=== PATIENT | male | born 1945 | race Caucasian/White ===

== ENCOUNTER 2020-12-08 16:31 | Outpatient (CLI) | payer MEDICARE, SELFPAY | END 2020-12-08 16:32 | disposition home or self-care (01) | LOC: ANHCOVIDVC 16:31 | PROVIDERS: PCP Nurse Practitioner Adult Health | DX: Z23 Encounter for immunization (principal) | CPT/HCPCS: 0001A; 91300 ==

== ENCOUNTER 2020-12-29 16:32 | Outpatient (CLI) | payer MEDICARE, SELFPAY | END 2020-12-29 16:33 | disposition home or self-care (01) | LOC: ANHCOVIDVC 16:32 | PROVIDERS: PCP Nurse Practitioner Adult Health | DX: Z23 Encounter for immunization (principal) | CPT/HCPCS: 0002A; 91300 ==

== ENCOUNTER 2021-07-09 10:40 | Outpatient (CLI) | payer MEDICARE, SELFPAY ==
--- NOTE | 2021-07-09 | ECG_ITS ---
Measurements Intervals Bryan Rate: 66 P: 25 ID: [id number] QRS: -20 QRSD: 93 T: 7 QT: 375 QTc: 395 Interpretive Statements SINUS RHYTHM BORDERLINE T WAVE ABNORMALITY- INFERIOR LEADS BASELINE ARTIFACT- I, II, AVR, AVL BORDERLINE ECG Electronically Signed On 07-09-2021 14:38:28 CDT by Solo Hammond D.O.
[2021-07-09 11:39] LABS: Albumin Level 4.5 g/dL (3.5-5.1); Estimated Glomerular Filt Rate > 60
== END 2021-07-09 10:41 | disposition home or self-care (01) ==
PROVIDERS: PCP Nurse Practitioner Family; Visit Provider Orthopaedic Surgery
DX: Z01.818 Encounter for other preprocedural examination (principal); M16.11 Unilateral primary osteoarthritis, right hip
CPT/HCPCS: 36415; 82040; 82565; 93005

== ENCOUNTER 2021-07-13 11:55 | Outpatient (CLI) | payer MEDICARE, SELFPAY ==
[2021-07-13 13:57] LABS: Basophils Absolute Auto 0.1 K/mm3 (0.0-0.1); Basophils Percent Auto 1.2 % (0.2-1.2); Eosinophils Absolute Auto 0.2 K/mm3 (0-0.3); Eosinophils Percent Auto 3.8 % (0-4.4); Hematocrit 41.1 % (42.0-52.0); Hemoglobin 14.2 g/dL (14.0-18.0); Immature Granulocyte Absolute 0.01 K/mm3 (0.00-0.031); Immature Granulocyte Percent A 0.2 % (0-0.5); Lymphocytes Percent Auto 32.4 % (18.3-44.2); Mean Corpuscular HGB Conc 34.5 g/dl (32-36); Mean Corpuscular Hemoglobin 32.1 pg (26-34); Mean Corpuscular Volume 92.8 fl (80-100); Mean Platelet Volume 9.1 fl (7.4-10.4); Monocytes Absolute Auto 0.3 K/mm3 (0.1-0.6); Monocytes Percent Auto 5.7 % (2.6-8.5); Neutrophils Absolute Auto 2.8 K/mm3 (1.3-6.7); Neutrophils Percent Auto 56.7 % (45.5-73.1); Platelet Count Result 250 k/mm3 (150-375); Red Blood Count 4.43 M/mm3 (4.6-6.20); Red Cell Distribution Width 13.8 % (11.5-14.5); White Blood Count 4.9 K/mm3 (4.5-10.0)
[2021-07-13 14:33] LABS: Glucose 111 mg/dL (65-110)
[2021-07-13 16:25] LABS: Urine Cotinine NEGATIVE
== END 2021-07-13 11:56 | disposition home or self-care (01) ==
LOC: ANHSURGERY 11:59
PROVIDERS: PCP Nurse Practitioner Family; Visit Provider Orthopaedic Surgery
DX: Z01.818 Encounter for other preprocedural examination (principal); M16.11 Unilateral primary osteoarthritis, right hip
CPT/HCPCS: 36415; 80307; 82947; 83036; 85025; 86850; 86900; 86901; 87081

== ENCOUNTER 2021-07-25 19:16 | Observation (INO) | payer MEDICARE, SELFPAY ==
[2021-07-13 12:11] VITALS: BP 162/90; PULSE 76; RESP 18; TEMP 36.8; O2SAT 98; BMI 36.6
[2021-07-24] VITALS (15 sets, daily range): BP systolic 126–158; BP diastolic 71–95; PULSE 66–90; RESP 12–20; TEMP 35.9–37.1; O2SAT 91–100
--- NOTE | 2021-07-24 07:57 | P.PNAN_ITS ---
Anes - Initial Pre Proc Eval Procedure: Operation Date: 07/24/21 11:00 Proposed Procedures p Right Total Hip Arthroplasty - Rishabh Rowe MD Date/Time: 07/24/21 07:57 Surgeon: Rishabh Rowe MD Pre Op Diagnosis: primary OA right hip Patient Data Age: 76 Gender: M Height: 1.68 m Weight: 103 kg Last Vital Signs Temp 36.8 C 07/13/21 12:11 Pulse 76 07/13/21 12:11 Resp 18 07/13/21 12:11 BP 162/90 H 07/13/21 12:11 Pulse Ox 98 07/13/21 12:11 Allergies Allergy/AdvReac Type Severity Reaction Status Date / Time No Known Allergies Allergy Verified 07/24/21 08:37 Home Medications Medication Instructions Recorded Confirmed Type losartan 100 mg tablet 100 mg PO HS 04/23/21 07/24/21 History acetaminophen [Tylenol Extra 1,000 mg PO Q6H PRN 07/13/21 07/24/21 History Strength] Patient hx anesthesia problems: none Family hx anesthesia problems: none Results Review: All pre-operative results and documents have been reviewed as part of the pre-operative evaluation. [facility] Past Medical History Medical History (Updated 07/24/21 @ 10:10 by Elijah William DO) Broken arm (~1950) History of aortic valve disorder Dr. French said could get Hip taken care of first. 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 Alcohol intake: current Alcohol use details: only on occasions Substance use: never Living arrangements: with family Additional living arrangements comments: Spiritual care concerns: No Anes - Eval Final PreProcedure Day of Procedure 07/24/21 07:57 Patient weight: obese Heart: regular rate and rhythm Lungs: clear to auscultation and normal air movement Airway: Mallampati scale class III Neurological: alert and oriented Last oral intake: >/= 8 hours ASA classification: III Emergent: no Anesthetic plan: proceed Anesthesia type and monitoring: general ETT and standard monitoring Results Review: All pre-operative results and documents have been reviewed as part of the pre-operative evaluation. Informed Consent: The patient's anesthetic plan and its attendant risks and benefits were discussed with the patient/family/POA. Questions were solicited and answers provided to the satisfaction of the patient/family/POA.
[2021-07-24] MEDS: LACTATED RINGERS 1,000 ML 30 ML IV CONT ×3 (09:14→15:02)
[2021-07-24] MEDS: ACETAMINOPHEN 500 MG TABLET 1000 MG PO (09:15)
[2021-07-24] MEDS: TRANEXAMIC ACID 1,000MG/ISO100 1,000 MG/100 ML BAG 200 MG IVPB (10:20)
--- NOTE | 2021-07-24 11:19 | WPDHPUPDATE1 ---
History and Physical Update Update Date/Time: 07/24/21 11:19 History and Physical has been reviewed, including an updated exam of the patient. There are NO changes in the patient's condition. Risks, benefits, and alternatives have been discussed and questions answered. Patient agrees to proceed with procedure.
[2021-07-24] MEDS: ceFAZolin 2 GM/D5W 50 ML 2 GM/50 ML BAG IVPB ×2 (11:45→21:06)
[2021-07-24] MEDS: fentaNYL CITRATE INJ (*CRX) 100 MCG/2 ML VIAL 25 MCG IV PUSH ×8 (14:16→14:52)
--- NOTE | 2021-07-24 14:21 | W.PM.PROC2 ---
Procedure Note - Detailed Date of Procedure 07/24/21 Pre-op Diagnosis Primary OA right hip Post-op Diagnosis same Procedure Performed Right Total Hip Arthroplasty Surgeon Rishabh Rowe MD Coal Chute Worker Berna Orosco PA-C Anesthesia general Description of Procedure The patient was given preoperative antibiotics. A general anesthetic was administered. The patient was carefully placed in the lateral decubitus position on the PEG board. The shoulders and hips were carefully positioned for component and leg length positioning reference. The hip was prepped and draped in the usual sterile fashion. A longitudinal incision was created over the posterior aspect of the greater trochanter. Careful dissection was brought down through the deep fascia with electrocautery. A minimally invasive optimized posterior approach to the hip was performed. The short external rotators and capsule were taken down in an L-shaped capsulotomy. The tissue was tagged for later repair using number 2 high strength suture. The femoral neck was measured and taken in situ. The femoral head was removed. The acetabulum was carefully exposed. The inferior capsule was released. The labrum was resected. The acetabulum was sequentially reamed to the intended cup size. The cup was impacted into position with excellent press-fit. Typical anatomic landmarks, including the bony contact points as well as the inferior transverse acetabular ligament were used to confirm cup positioning with preoperative templating. Attention was turned to the femur, which was carefully exposed. The hip was reamed and then broached sequentially. Excellent press-fit was obtained with the broach. The hip was trialed. Measurements were utilized, including the lesser trochanter as well as the center of the femoral head and the tip of the trochanter, and excellent assessment of the offset and leg lengths were confirmed. The real component was impacted into position. Trialing confirmed appropriate leg length and offset with soft tissue balancing as well apparent feel of the leg, both at the knee and the heel. Soft tissues were assessed using the the iliotibial band. Reduction of the posterior capsule and external rotators were also used as a secondary assessment. The hip was copiously irrigated with pulsatile lavage antibiotic solution periodically throughout the procedure. The real components were then assembled and reduced. The hip was stable throughout typical maneuvers, including extension, external rotation to 70 degrees, the position of sleep as well as flexion to 90 degrees with internal rotation past 45 degrees. The shake test confirmed stability without impingement. Osteophytes were removed as necessary. The short external rotators and capsule were repaired back to the posterior trochanter through drill holes. The deep fascia was repaired with running number 2 Quill suture, followed by 0 Stratafix suture and 2-0 Stratafix suture in the dermis. Steri-Strips were placed on the skin, followed by a sterile silver occlusive dressing. There were no complications. Meticulous hemostasis was maintained with the AquaMantys device. The patient was brought to the recovery room in stable condition. There were no complications. Physician assistant manager/embalmer, Berna Orosco PA-C, required for surgery; including patient positioning, draping, tissue retraction, maintaining instrument position, wound closure, and dressing placement. Implants The Accolade II hip stem, 127 degree size 5 , was utilized with excellent press-fit. 10 degree elevated liner. The 54 mm Trident II acetabular component was impacted with excellent press-fit stability. The -2.5 , 36 mm Biolox ceramic femoral head was utilized. Estimated Blood Loss -300.0 Urine Output -900.0 Drains No Packing No Pathology none sent Complications No immediate complications Condition stable Disposition PACU
[2021-07-24] MEDS: HYDROmorphone HCL INJ (*CRX) 1 MG/ML SYR 0.5 MG IV PUSH ×2 (15:04→15:18)
[2021-07-24 15:39] LABS: Hematocrit 37.2 % (42.0-52.0); Hemoglobin 12.9 g/dL (14.0-18.0)
--- NOTE | 2021-07-24 15:58 | ADMGEN ---
This patient, Krunal Partida, was admitted to Medical Room 259-. Patient/family oriented to hospital policies and general routines including ID bracelet, bed and alarms, visiting hours, pain management, procedures, bathroom and other care routines, personal items, smoking policy, room service/diet, and visiting hours. Information on how to activate the Rapid Response Team has been discussed. Patient/Family are encouraged to report perceived risks to care and to ask questions if they do not understand what they are told or what they should do.
[2021-07-24] MEDS: ASPIRIN 81 MG ENTERIC TABLET PO (19:10)
[2021-07-24] MEDS: DOCUSATE SODIUM 100 MG CAPSULE PO (19:10)
[2021-07-24] MEDS: LOSARTAN POTASSIUM 100 MG TABLET PO (21:06)
[2021-07-24] MEDS: FAMOTIDINE 20 MG TABLET PO (21:07)
[2021-07-24] MEDS: oxyCODONE HCL (*CRX) 5 MG TAB IR PO (21:07)
[2021-07-25] VITALS (10 sets, daily range): BP systolic 117–153; BP diastolic 56–78; PULSE 70–97; RESP 16–20; TEMP 36.1–37.2; O2SAT 95–100
--- NOTE | ~2021-07-25 | XR_ITS ---
EXAMINATION: XR hip RT min 2V DATE: 07/24/2021 14:23 INDICATION: Total right hip arthroplasty. Postop. TECHNIQUE: 2 views of right hip were obtained. COMPARISON: Right hip radiographs 05/14/2021 FINDINGS: There is a total right hip arthroplasty in near-anatomic alignment. No fracture. There is g as in the soft tissues, consistent with recent surgery. IMPRESSION: 1. Total right hip arthroplasty in near-anatomic alignment. Reviewed, dictated and finalized at location A.
[2021-07-25] MEDS: ceFAZolin 2 GM/D5W 50 ML 2 GM/50 ML BAG IVPB ×2 (03:55→11:30)
[2021-07-25] MEDS: oxyCODONE HCL (*CRX) 5 MG TAB IR PO (04:41)
[2021-07-25 05:42] LABS: Basophils Absolute Auto 0.1 K/mm3 (0.0-0.1); Basophils Percent Auto 0.7 % (0.2-1.2); Eosinophils Absolute Auto 0.2 K/mm3 (0-0.3); Eosinophils Percent Auto 2.3 % (0-4.4); Hematocrit 34.8 % (42.0-52.0); Hemoglobin 11.8 g/dL (14.0-18.0); Immature Granulocyte Absolute 0.03 K/mm3 (0.00-0.031); Immature Granulocyte Percent A 0.4 % (0-0.5); Lymphocytes Absolute Auto 1.46 K/mm3 (0.9-3.2); Lymphocytes Percent Auto 19.8 % (18.3-44.2); Mean Corpuscular HGB Conc 33.9 g/dl (32-36); Mean Corpuscular Hemoglobin 32.5 pg (26-34); Mean Corpuscular Volume 95.9 fl (80-100); Mean Platelet Volume 9.1 fl (7.4-10.4); Monocytes Absolute Auto 0.5 K/mm3 (0.1-0.6); Monocytes Percent Auto 7.3 % (2.6-8.5); Neutrophils Absolute Auto 5.1 K/mm3 (1.3-6.7); Neutrophils Percent Auto 69.5 % (45.5-73.1); Platelet Count Result 175 k/mm3 (150-375); Red Blood Count 3.63 M/mm3 (4.6-6.20); Red Cell Distribution Width 13.8 % (11.5-14.5); White Blood Count 7.4 K/mm3 (4.5-10.0)
[2021-07-25 05:53] LABS: Anion Gap 6 mmol/L (8-16); Blood Urea Nitrogen 15 mg/dL (9-20); Calcium 8.3 mg/dL (8.4-10.2); Carbon Dioxide 27 mmol/L (22-30); Chloride 102 mmol/L (98-107); Estimated CRCL calculation 56 ml/min; Estimated Glomerular Filt Rate > 60; Glucose 113 mg/dL (65-110); Potassium 4.1 mmol/L (3.4-5.0); Sodium 135 mmol/L (137-145)
[2021-07-25] MEDS: DOCUSATE SODIUM 100 MG CAPSULE PO ×2 (08:13→16:59)
[2021-07-25] MEDS: oxyCODONE HCL (*CRX) 5 MG TAB IR 10 MG PO ×4 (08:13→23:06)
[2021-07-25] MEDS: FAMOTIDINE 20 MG TABLET PO ×2 (08:13→20:14)
[2021-07-25] MEDS: ASPIRIN 81 MG ENTERIC TABLET PO ×2 (08:13→16:59)
--- NOTE | 2021-07-25 13:51 | WPDANESPN ---
Anes - Prog Note Post-Op Date/Time: 07/25/21 13:51 Cardiovascular status: normal Respiratory status: normal Airway patency: baseline Mental status: baseline Post-Op hydration status: normal Vital Signs: Last Vital Signs Temp 98.4 F 07/25/21 09:07 Pulse 89 07/25/21 09:07 Resp 16 07/25/21 09:07 BP 117/56 L 07/25/21 09:07 Pulse Ox 97 07/25/21 09:07 Pain Score (VAS): 3 I/O: Intake & Output 07/24/21 07/25/21 07/25/21 23:59 07:59 15:59 Intake Total 230 350 500 Output Total 550 Balance 230 -200 500 Laboratory Tests 07/25/21 05:26 07/25/21 05:26 07/24/21 07/25/21 07/25/21 15:34 05:26 05:26 WBC 7.4 RBC 3.63 L Hgb 12.9 L 11.8 L Hct 37.2 L 34.8 L MCV 95.9 MCH 32.5 MCHC 33.9 RDW 13.8 Plt Count 175 MPV 9.1 Immature Gran % (Auto) 0.4 Neut % (Auto) 69.5 Lymph % (Auto) 19.8 [place] % (Auto) 7.3 Eos % (Auto) 2.3 Baso % (Auto) 0.7 Lymph # (Auto) 1.46 [place] # (Auto) 0.5 Eos # (Auto) 0.2 Baso # (Auto) 0.1 Abs Immat Gran (auto) 0.03 Absolute Neuts (auto) 5.1 Absolute Nucleated RBC 0.0 Nucleated RBC % 0.0 Sodium 135 L Potassium 4.1 Chloride 102 Carbon Dioxide 27 Anion Gap 6 L BUN 15 Creatinine 1.10 Estim Creat Clear Calc 56 Estimated GFR > 60 Glucose 113 H Calcium 8.3 L Post-procedural complaints: none Patient Feedback: Patient satisfied with anesthetic care.
--- NOTE | 2021-07-25 16:38 | PM.PNORT ---
Progress Note: A&P Assessment and Plan (1) Status post total hip replacement, right: Code(s): Z96.641 - Presence of right artificial hip joint Status: Acute Assessment and Plan: POD #1 Right Total hip arthroplasty. No complications. Patient was given a Elmore during surgery. It was removed this AM and he has yet to urinate. Bladder scan showed 200 cc. Nurse is encouraging him to drink water. Increased pain. Will start oral Tylenol. Patient states he is unable to take NSAIDs according to his PCP. Having trouble with PT. Spoke with PT this morning. Concern for his safety wile walking. Throat pain from intubation. Will keep patient overnight. Hospital consult for medical management. Patient will discharge home pending pain control and ability to urinate. DVT prophylaxis: 81 mg baby aspirin b.i.d. for 14 days. Short frequent walks. Compression socks. Pain medication: Tylenol and Oxycodone. Subjective Subjective Date/Time Seen: 07/25/21 16:38 POD #1 Right Total hip arthroplasty. No complications. Patient was given a Elmore during surgery. It was removed today and he has yet to urinate. Bladder scan showed 200 cc. Increased pain today and is having trouble with PT. Throat pain from intubation. No other complaints. Review of Systems Review of Systems: All systems reviewed & are unremarkable except as noted in HPI and below Exam Narrative: Pleasant overweight, elderly 76 y/o male. A&O x3. No clinical deformity. Difficulty ambulating with walker. Dressing dry and intact. No drainage, erythema, ecchymosis, warmth. No rash or lesions. Tender to palpation. Slight swelling. No distal edema. Good early ROM. Light touch sensation intact. Dorsalis pedis pulse normal. Leg length appears equal. Calf nontender. Objective Data Vital Signs Vital Signs: Vital Signs - 24 hr 07/24/21 16:45 07/24/21 17:45 07/24/21 21:29 Temperature 96.7 F L 96.6 F L 97.3 F L Pulse Rate 68 71 90 Respiratory Rate 18 18 20 Blood Pressure 154/78 H 126/71 142/76 H Pulse Oximetry 99 100 93 07/24/21 22:40 07/25/21 00:21 07/25/21 00:24 Temperature 96.9 F L 96.9 F L Pulse Rate 90 72 72 Respiratory Rate 20 18 18 Blood Pressure 135/65 135/65 Pulse Oximetry 93 99 99 07/25/21 05:29 07/25/21 09:00 07/25/21 09:07 Temperature 97.9 F 98.4 F Pulse Rate 70 89 Respiratory Rate 20 16 Blood Pressure 124/65 117/56 L Pulse Oximetry 97 97 97 07/25/21 13:29 Temperature 97.4 F L Pulse Rate 80 Respiratory Rate 17 Blood Pressure 128/65 Pulse Oximetry 100 Intake/Output Intake/Output: Intake & Output 07/22/21 07/23/21 07/24/21 07/25/21 23:59 23:59 23:59 23:59 Intake Total 880 850 Output Total 370 550 Balance 510 300 Meds/Results Medications: Active Medications Generic Name Dose Route Start Last Admin Trade Name Freq PRN Reason Stop Dose Admin Acetaminophen 1,000 mg 07/25/21 16:24 Acetaminophen 500 Mg Tablet PO Q6H PRN Mild Pain (1-3) or Fever Aspirin 81 mg 07/24/21 17:00 07/25/21 08:13 Aspirin 81 Mg Enteric Tablet PO 81 mg BID JONAH Administration Cyclobenzaprine HCl 10 mg 07/24/21 15:44 Cyclobenzaprine Hcl 10 Mg Tablet PO Q8H PRN Muscle Spasm Docusate Sodium 100 mg 07/24/21 17:00 07/25/21 08:13 Docusate Sodium 100 Mg Capsule PO 100 mg BID JONAH Administration Famotidine 20 mg 07/24/21 21:00 07/25/21 08:13 Famotidine 20 Mg Tablet PO 20 mg Q12HR JONAH Administration Losartan Potassium 100 mg 07/24/21 21:00 07/24/21 21:06 Losartan Potassium 100 Mg Tablet PO 100 mg HS JONAH Administration Magnesium Hydroxide 30 ml 07/24/21 15:44 Magnesium Hydroxide Susp 30 Ml Udc PO BID PRN Constipation Naloxone HCl 0.1 mg 07/24/21 15:44 Naloxone Hcl 0.4 Mg/Ml Vial IV PUSH Q2M PRN Opiate Reversal Ondansetron HCl 4 mg 07/24/21 15:44 Ondansetron Inj 4 Mg/2 Ml Vial IV PUSH Q4H PRN Philip
[2021-07-25] MEDS: ACETAMINOPHEN 500 MG TABLET 1000 MG PO (16:59)
[2021-07-25] MEDS: LOSARTAN POTASSIUM 100 MG TABLET PO (20:13)
[2021-07-26] VITALS (8 sets, daily range): BP systolic 123–145; BP diastolic 55–72; PULSE 86–100; RESP 17–20; TEMP 36.8–37.2; O2SAT 95–97
--- NOTE | 2021-07-26 00:20 | PC.NURSE ---
PT KEENE REMOVED ON DAY SHIFT 07/25, AND WAS RETAINING. HE WAS STRAIGHT CATHETERIZED PRIOR TO MY SHIFT. I ENCOURAGED PT TO DRINK WATER AND ATTEMPT TO URINATE IN URINAL. PT HAD MULTIPLE UNSUCCESSFUL ATTEMPTS TO URINATE. DECIDED TO SCAN BLADDER BUT BLADDER SCANNER WAS NOT PICKING UP ANY URINE. 0000 PT STATED HE FELT HE HAD URINE IN HIS BLADDER AND WAS UNCOMFORTABLE TO I STRAIGHT CATHETERIZED HIM. PT PRODUCED 500ML URINE. PT STATING HE HAD NO PROBLEMS URINATING BEFORE SURGERY ONLY MINOR DRIBBLING.
[2021-07-26] MEDS: oxyCODONE HCL (*CRX) 5 MG TAB IR 10 MG PO (06:52)
--- NOTE | 2021-07-26 07:01 | PC.NURSE ---
0650 PT ATTEMPTING TO USE URINAL WITH NO SUCCESS. BLADDER SCANNER STILL DOWN. PT SAID HE FELT PAIN AND HE HAD TO URINATE BUT NOTHING WAS COMING OUT. STRAIGHT CATH RESULTED IN 800ML OF URINE
[2021-07-26] MEDS: ASPIRIN 81 MG ENTERIC TABLET PO ×2 (08:26→16:56)
[2021-07-26] MEDS: DOCUSATE SODIUM 100 MG CAPSULE PO ×2 (08:26→16:56)
[2021-07-26] MEDS: FAMOTIDINE 20 MG TABLET PO ×2 (08:26→20:30)
[2021-07-26] MEDS: MAGNESIUM HYDROXIDE SUSP 30 ML UDC PO ×2 (08:27→16:59)
--- NOTE | 2021-07-26 13:15 | PM.IMCN ---
Assessment and Plan Assessment and plan (1) Status post total hip replacement, right: Code(s): Z96.641 - Presence of right artificial hip joint Status: Acute (2) Arthritis of right hip: Code(s): M16.11 - Unilateral primary osteoarthritis, right hip Status: Acute (3) Right hip pain: Code(s): M25.551 - Pain in right hip Status: Acute HPI Data of Consult Consult date: 07/26/21 Requesting Physician: Rishabh Rowe MD Primary Care Provider: Kenna Rojas, CONSULTING MARINE ENGINEER-BC Consult Narrative Narrative: Krunal Partida is a 76 year old male Review of Systems Review of Systems: All systems reviewed & are unremarkable except as noted in HPI and below PMFSH Past Medical History Medical History (Updated 07/24/21 @ 10:10 by Elijah William DO) Broken arm (~1950) History of aortic valve disorder Dr. French said could get Hip taken care of first. Moderate - mean gradient 25.3 mmHg, valve area 1.29 cm2 History of hypertension History of kidney stones Kidney stones in the past but not recent Hyperlipidemia Hypertension Family History Family History Father Malignant neoplasm of prostate Social History Social History Smoking status: Never smoker Tobacco type: cigarettes Smoking end date: 09/29/1961 Additional smoking assessment comments: SMOKED SMALL AMT TEENAGER Alcohol intake: current Drinks per week: 1 Alcohol use details: only on occasions Substance use: never Substance use type: does not use Living arrangements: with family Additional living arrangements comments: Spiritual care concerns: No Meds Home Medications and Allergies Home Medications Medication Instructions Recorded Confirmed Type losartan 100 mg tablet 100 mg PO HS 04/23/21 07/24/21 History acetaminophen [Tylenol Extra 1,000 mg PO Q6H PRN 07/13/21 07/24/21 History Strength] Allergies Allergy/AdvReac Type Severity Reaction Status Date / Time No Known Allergies Allergy Verified 07/24/21 16:00 Vital Signs Vital Signs - 24 hr 07/25/21 13:29 07/25/21 17:29 07/25/21 20:06 Temperature 97.4 F L 98.3 F 99 F Pulse Rate 80 89 87 Respiratory Rate 17 18 17 Blood Pressure 128/65 126/78 127/63 Pulse Oximetry 100 99 95 07/25/21 20:58 07/25/21 23:31 07/26/21 04:01 Temperature 98.4 F 99 F Pulse Rate 87 97 100 Respiratory Rate 17 17 20 Blood Pressure 153/75 H 145/72 H Pulse Oximetry 95 98 95 07/26/21 08:57 Temperature Pulse Rate Respiratory Rate Blood Pressure Pulse Oximetry 95 Exam Const: General: no acute distress Resp: Effort & Inspection: normal respiratory effort Auscultation: clear to auscultation bilaterally Cardio: Rate: regular rate Rhythm: regular rhythm GI: GI Palp: Yes Soft to palpation and No Tenderness to palpation present (GI) Results Labs CBC & Chem 7: 07/25/21 05:26 07/25/21 05:26
--- NOTE | 2021-07-26 16:40 | PM.PNORT ---
Progress Note: A&P Assessment and Plan (1) Status post total hip replacement, right: Code(s): Z96.641 - Presence of right artificial hip joint <LOUIS Pool - Last Filed: 07/26/21 16:49> Status: Acute <LOUIS Pool - Last Filed: 07/26/21 16:49> Assessment and Plan: POD #2 Right Total hip arthroplasty. Patient was given a Elmore during surgery. It was removed yesterday and he has yet to urinate. Bladder scan showed 500 cc. Will put in a Elmore catheter and consult urology. Pain is controlled today and he is participating much better with PT. He states he is now having abdominal pain. Pain likely from full bladder. Patient also states his abdomen is typically distended. He has not had a bowel movement since surgery. He will be getting Milk of Mag and Colace tonight. Will consult Hospitalist. Will keep patient overnight. DVT prophylaxis: 81 mg baby aspirin b.i.d. for 14 days. Short frequent walks. Compression socks. Pain medication: Tylenol and Oxycodone. <LOUIS Pool - Last Filed: 07/26/21 16:49> Additional Plan Patient seen and examined. Agree with above plan. Will place Elmore this evening. Encourage ambulation. Appreciate hospitalist assistance. <Rishabh Rowe MD - Last Filed: 07/26/21 18:05> Subjective Subjective Date/Time Seen: 07/26/21 16:40 POD #2 Right Total hip arthroplasty. No complications. Patient was given a Elmore during surgery. It was removed yesterday and he has yet to urinate. Now complaining of abdominal pain. States he did much better with PT today. <LOUIS Pool - Last Filed: 07/26/21 16:49> Review of Systems Review of Systems: All systems reviewed & are unremarkable except as noted in HPI and below <LOUIS Pool - Last Filed: 07/26/21 16:49> Exam Narrative: Pleasant overweight, elderly 76 y/o male. A&O x3. Abdomen distended and hard on palpation. No clinical deformity. Ambulating with walker. Dressing dry and intact. No drainage, erythema, ecchymosis, warmth. No rash or lesions. Slight swelling. No distal edema. Good early ROM. Light touch sensation intact. Dorsalis pedis pulse normal. Leg length appears equal. Calf nontender. <LOUIS Pool - Last Filed: 07/26/21 16:49> Objective Data Vital Signs Vital Signs: Vital Signs - 24 hr 07/25/21 17:29 07/25/21 20:06 07/25/21 20:58 Temperature 98.3 F 99 F Pulse Rate 89 87 87 Respiratory Rate 18 17 17 Blood Pressure 126/78 127/63 Pulse Oximetry 99 95 95 07/25/21 23:31 07/26/21 04:01 07/26/21 08:57 Temperature 98.4 F 99 F Pulse Rate 97 100 Respiratory Rate 17 20 Blood Pressure 153/75 H 145/72 H Pulse Oximetry 98 95 95 07/26/21 12:05 07/26/21 14:20 Temperature 98.4 F 98.8 F Pulse Rate 86 94 Respiratory Rate 18 18 Blood Pressure 142/70 H 130/65 Pulse Oximetry 96 95 <LOUIS Pool - Last Filed: 07/26/21 16:49> Intake/Output Intake/Output: Intake & Output 07/23/21 07/24/21 07/25/21 07/26/21 23:59 23:59 23:59 23:59 Intake Total 880 1330 580 Output Total 370 2100 1350 Balance 510 -372 -770 <LOUIS Pool - Last Filed: 07/26/21 16:49> Meds/Results Medications: Active Medications Generic Name Dose Route Start Last Admin Trade Name Freq PRN Reason Stop Dose Admin Acetaminophen 1,000 mg 07/25/21 16:24 07/25/21 16:59 Acetaminophen 500 Mg Tablet PO 1,000 mg Q6H PRN Administration Mild Pain (1-3) or Fever Aspirin 81 mg 07/24/21 17:00 07/26/21 08:26 Aspirin 81 Mg Enteric Tablet PO 81 mg BID JONAH Administration Cyclobenzaprine HCl 10 mg 07/24/21 15:44 Cyclobenzaprine Hcl 10 Mg Tablet PO Q8H PRN Muscle Spasm Docusate Sodium 100 mg 07/24/21 17:00 07/26/21 08:26 Docusate Sodium 100 Mg Capsule PO 100 mg BID JONAH Administration Famotidine 20 mg 07/24/21 21:00 07/26/21 08:26 Famot
[2021-07-26] MEDS: LOSARTAN POTASSIUM 100 MG TABLET PO (20:30)
[2021-07-27] MEDS: oxyCODONE HCL (*CRX) 5 MG TAB IR PO ×2 (02:03→08:14)
[2021-07-27 04:01] VITALS: BP 125/66; PULSE 85; RESP 18; TEMP 36.1; O2SAT 94
[2021-07-27] MEDS: DOCUSATE SODIUM 100 MG CAPSULE PO (08:11)
[2021-07-27] MEDS: FAMOTIDINE 20 MG TABLET PO (08:11)
[2021-07-27] MEDS: ASPIRIN 81 MG ENTERIC TABLET PO (08:11)
[2021-07-27] MEDS: MAGNESIUM HYDROXIDE SUSP 30 ML UDC PO (08:14)
--- NOTE | 2021-07-27 08:16 | PM.IMCN ---
Assessment and Plan Assessment and plan (1) Status post total hip replacement, right: Code(s): Z96.641 - Presence of right artificial hip joint Status: Acute Assessment and Plan: Postop day 3 from right total hip arthroplasty, noted patient is on aspirin daily. Defer to Orthopedics regarding pharmacological anticoagulation for DVT prophylaxis, noted he is on SCDs (2) Abdominal pain: Code(s): R10.9 - Unspecified abdominal pain Status: Acute Assessment and Plan: Reason for internal medicine consult. Lower abdominal discomfort, likely due to urinary retention, has pain resolved immediately after Elmore was put in. Noted that large clot in bag after Elmore was pain. Urology is on consult, recommend following with them to determine cause of obstruction, full bladder and subsequent distention was most likely cause of pain. At this point pain is completely resolved. Patient has no GI symptoms, including nausea vomiting, denies any fever chills. (3) Urinary retention: Code(s): R33.9 - Retention of urine, unspecified Status: Acute Assessment and Plan: Noted urology has been consulted, and bladder scan showing 500 cc, and therefore Elmore was inserted last night. Additional Plan Thank you for the consult, we will continue to follow. HPI Data of Consult Consult date: 07/27/21 Requesting Physician: Rishabh Rowe MD Primary Care Provider: Kenna Rojas, CURTAIN CUTTER- Consult Narrative Reason for consult: abdominal pain Narrative: Patient is a 76-year-old male presenting right total hip arthroplasty. He has had a need to have this done for several years, but other medical problems delay the procedure. He is currently postop day 3 following the procedure. Hospitalist service was consulted because patient is having abdominal pain. Appears to be lower abdominal pain, which resolved after putting the Elmore in. PastMedical history: Patient has polio as a child Allergies: Patient is not aware of any allergies Medications: Several daily, as noted in the chart Social history: Denies any significant drug alcohol or tobacco use Surgeries: Left hand surgery when he was child, postop day 3 from hip procedure Hospital course: Vital signs have been stable over the last day, hemoglobin is 12 13 over the last days, 14.2 initially before the surgery electrolytes are essentially normal, A1c elevated to 6 MRSA nares was negative Review of Systems Review of Systems: All systems reviewed & are unremarkable except as noted in HPI and below PMFSH Past Medical History Medical History Broken arm (~1950) History of aortic valve disorder Dr. French said could get Hip taken care of first. Moderate - mean gradient 25.3 mmHg, valve area 1.29 cm2 History of hypertension History of kidney stones Kidney stones in the past but not recent Hyperlipidemia Hypertension Family History Family History Father Malignant neoplasm of prostate Social History Social History Smoking status: Never smoker Tobacco type: cigarettes Smoking end date: 09/29/1961 Additional smoking assessment comments: SMOKED SMALL AMT TEENAGER Alcohol intake: current Drinks per week: 1 Alcohol use details: only on occasions Substance use: never Substance use type: does not use Living arrangements: with family Additional living arrangements comments: Spiritual care concerns: No Meds Home Medications and Allergies Home Medications Medication Instructions Recorded Confirmed Type losartan 100 mg tablet 100 mg PO HS 04/23/21 07/24/21 History acetaminophen 1,000 mg PO Q6H PRN 07/13/21 07/24/21 History aspirin 81 mg PO BID 14 Days #28 tablet 07/27/21 Rx oxycodone-acetaminophen 1 - 2 tablet PO Q4-6H PRN #30
--- NOTE | 2021-07-27 09:34 | WPDURCON ---
Assessment and Plan Assessment and plan (1) Urinary retention: Code(s): R33.9 - Retention of urine, unspecified Status: Acute Assessment and Plan: Etiology may be multifactorial with BPH and anesthesia as well as immobility. Will initiate use of tamsulosin. If patient is ready for discharge can be discharged home with Elmore catheter and tamsulosin and have a voiding trial in our office on Friday. He will need to call for that appointment. If patient is still going to be urine other 24-48 hours then possibly a voiding trial over the weekend could be attempted. Urology Consult Note HPI Date Seen: 07/27/21 Requesting Physician: Rishabh Rowe MD Primary Care Provider: Kenna Rojas, UNDERWRITING ASSISTANT-BC Consult Narrative Reason for consult: Urinary retention Narrative: Krunal Partida is a 76 year old male known to me. Patient underwent a right total hip arthroplasty in this developed urinary retention postoperatively. Patient has had required intermittent catheterization and most recently had a Elmore catheter placed with a residual 500 cc. Patient is not on any tamsulosin at this time. He is getting up with the use of a walker at this time. Review of Systems Review of Systems: All systems reviewed & are unremarkable except as noted in HPI and below PMFSH Past Medical History Medical History Broken arm (~1950) History of aortic valve disorder Dr. French said could get Hip taken care of first. Moderate - mean gradient 25.3 mmHg, valve area 1.29 cm2 History of hypertension History of kidney stones Kidney stones in the past but not recent Hyperlipidemia Hypertension Family History Family History Father Malignant neoplasm of prostate Social History Social History Smoking status: Never smoker Tobacco type: cigarettes Smoking end date: 09/29/1961 Additional smoking assessment comments: SMOKED SMALL AMT TEENAGER Alcohol intake: current Drinks per week: 1 Alcohol use details: only on occasions Substance use: never Substance use type: does not use Living arrangements: with family Additional living arrangements comments: Spiritual care concerns: No Meds Home Medications and Allergies Home Medications Medication Instructions Recorded Confirmed Type losartan 100 mg tablet 100 mg PO HS 04/23/21 07/24/21 History acetaminophen [Tylenol Extra 1,000 mg PO Q6H PRN 07/13/21 07/24/21 History Strength] Allergies Allergy/AdvReac Type Severity Reaction Status Date / Time No Known Allergies Allergy Verified 07/24/21 16:00 Vital Signs Vital Signs - 24 hr 07/26/21 12:05 07/26/21 14:20 07/26/21 19:33 Temperature 36.9 C 37.1 C 37.1 C Pulse Rate 86 94 98 Respiratory Rate 18 18 17 Blood Pressure 142/70 H 130/65 123/55 L Pulse Oximetry 96 95 97 07/26/21 20:00 07/26/21 20:40 07/26/21 23:21 Temperature 36.8 C Pulse Rate 94 94 Respiratory Rate 18 18 Blood Pressure 137/72 Pulse Oximetry 97 95 97 07/27/21 04:01 Temperature 36.1 C L Pulse Rate 85 Respiratory Rate 18 Blood Pressure 125/66 Pulse Oximetry 94 Exam Const: General: cooperative and comfortable Resp: Effort & Inspection: normal respiratory effort Cardio: Rate: regular rate Rhythm: regular rhythm Urinary Catheter: Urinary Catheter: patent and draining Results Labs CBC & Chem 7: 07/25/21 05:26 07/25/21 05:26
[2021-07-27] MEDS: TAMSULOSIN HCL 0.4 MG CAPSULE PO (10:03)
--- NOTE | 2021-07-27 10:44 | PM.DS ---
DS: Admitting Diagnosis Discharge Date 07/27/21 Admitting Diagnosis OA Right hip DS: Discharge Diagnosis Discharge Diagnosis (1) Orthopedic aftercare for joint replacement: Code(s): Z47.1 - Aftercare following joint replacement surgery Status: Acute (2) Status post total hip replacement, right: Code(s): Z96.641 - Presence of right artificial hip joint Status: Acute Assessment and Plan: Post op Total hip arthroplasty. Patient tolerated procedure well. Pain manageable with pain medication. No numbness or tingling distally. Did have urine retention. He will be going home with a Elmore, a new medication, and follow up with Urology. Abdominal pain improved after Elmore. He has been passing gas. We had a lengthy discussion regarding postoperative wound care, limitations, expectations, and exercises. Patient shows good understanding. Patient has had initial physical therapy and is tolerating it well. DVT prophylaxis: 81 mg baby aspirin b.i.d. for 14 days. Short frequent walks. Pain medication: Percocet. Patient has followup appointment with Dr. Rowe in 3 weeks DS: Summary Hospital Course Reason for hospitalization: Total hip arthroplasty Hospital Course: Patient tolerated procedure well. Has had initial PT/OT and made good progress. Issue with urine recension. Urology consulted. He will be going home with a Elmore and new medication and follow up with urology. Also complained of ABD pain which improved with Elmore. He has passed gas. Status at Discharge Functional status at discharge: uses cane/walker Overall status at discharge: patient is progressing back to baseline Time Spent with Patient Time attestation: Total time spent providing and/or coordinating discharge services: Exam Narrative: Overweight 76 y/o male. Resting comfortably in bed. Abdomen more soft today. Elmore in place and draining. Wearing compression socks bilaterally. Dressing dry and intact with no drainage. Moderate swelling. No ecchymosis. No erythema. No hematoma. Range of motion limited due to pain. Calf nontender. Thigh nontender. Neurologic status intact. No varicosities. Distal pulses palpable. Discharge Plan Discharge Attending physician on discharge: Rishabh Rowe Consulting providers: Danilo Vera ; Anahi Ortega ; Natasha Molina Discharging Clinician: Berna Orosco Patient Disposition: Home, Self-Care Activity: may shower Diet: as tolerated and regular Wound Care Instructions: follow printed instructions and other - see discharge instructions Discharge Instructions: Orthopedic instructions: See instruction sheet Urology instructions: Discharged home with Elmore catheter and tamsulosin and have a voiding trial in office on Friday. He will need to call for that appointment. Patient Instructions: Pain Management (DC), Precautions after Total Joint Replacement Surgery (ED), Joint Replacement Surgery (DC), Total Hip Replacement (DC) Stand Alone Forms: General Discharge Instructions Follow-up/Referrals: Berna Orosco PA [Physician Jailkeeper] - Discharge Medications: New oxycodone-acetaminophen 5-325 mg tablet 1 - 2 tablet PO Q4-6H MDD 6 PRN (Reason: pain) Qty: 30 RF: 0 aspirin 81 mg tablet,delayed release (DR/EC) 81 mg PO BID 14 Days Qty: 28 RF: 0 Continued losartan 100 mg tablet 100 mg PO HS RF: 0 Held acetaminophen [Tylenol Extra Strength] 500 mg Capsule 1,000 mg PO Q6H PRN (Reason: Pain) RF: 0 Hold Instructions: Resume on 08/08/21. Hold while taking Percocet Date of admission: 07/25/21 19:16 Primary Care Provider: Bob,Kenna Herrera Admitting Provider: Rishabh Rowe Attending physician on admission: Rishabh Rowe Condition: Stable
--- NOTE | 2021-07-27 11:41 | PC.NURSE ---
Patient provided education regarding nieto catheter for home use. Patient verbalized understanding regarding leg bag/cleanliness at home.
== END 2021-07-27 12:04 | disposition home or self-care (01) ==
LOC: ANHSURGERY 19:36 → ANH2MED 19:36
PROVIDERS: Physician Assistant Surgical; Admitting Provider Orthopaedic Surgery; PCP Nurse Practitioner Family; Visit Provider Orthopaedic Surgery
PROC: (CPT 27130; principal; 2021-07-24 11:00)
DX: M16.11 Unilateral primary osteoarthritis, right hip (principal); R10.9 Unspecified abdominal pain; R33.9 Retention of urine, unspecified; I10 Essential (primary) hypertension
CPT/HCPCS: 27130; 36415; 73502; 80048; 80307; 82040; 82565; 82947; 83036; 85014; 85018; 85025; 86850; 86900; 86901; 87081; 93005; 97110; 97116; 97161; 97165; 97530; 97535; A9270; C1776; G0378; J0131; J0171; J0690; J1100; J1170; J1885; J2270; J2405; J2704; J2710; J2795; J3010; J7120

== ENCOUNTER 2021-08-04 14:52 | Emergency (ER) | payer MEDICARE, SELFPAY ==
[2021-08-04 14:59] VITALS: BP 184/91; PULSE 98; RESP 18; TEMP 37.2; O2SAT 100
[2021-08-04] MEDS: LIDOCAINE HCL 2% GEL UROJET 10 ML PKG MUCOUS MEM (15:40)
[2021-08-04 16:57] LABS: Add Urine Microscopic? YES; Appearance Urine Cloudy (Clear); Bacteria Urine Trace /hpf; Bilirubin Urine Negative (Negative); Blood Urine 2+ (Negative); Color Urine Yellow (Yellow); Glucose Urine UA Negative (Negative); Ketones Urine Negative (Negative); Leukocyte Esterase Ur 3+ LEU/UL (Negative); Mucus Urine Rare /lpf; Nitrate Urine Negative (Negative); Protein Urine 1+ mg/dL (Negative); Specific Grav Ur 1.016 (1.001-1.035); Squamous Epithelial Cell Urine Rare /hpf (Few); Urobilinogen Urine Negative mg/dL (<2.0); WBC Urine >75 /hpf
--- NOTE | 2021-08-04 17:19 | ED.MALEGU ---
HPI - Male Genitourinary General Chief complaint: Urogenital-Male Stated complaint: no urine since 2300 last night Time Seen by Provider: 08/04/21 15:06 History of Present Illness HPI Narrative: Patient is a 76-year-old male who presents ER with urinary retention. Last time he urinated was last night at 11 PM. He does have suprapubic discomfort. No fevers or chills or sweats. He is currently on Bactrim. He was recently hospitalized and had urinary retention and a Elmore catheter. He was seen 5 days ago neurology clinic and placed on Flomax. No additional concerns. Related Data Home Medications Medication Instructions Recorded Confirmed losartan 100 mg tablet 100 mg PO HS 04/23/21 07/24/21 acetaminophen 1,000 mg PO Q6H PRN 07/13/21 07/24/21 Allergies Allergy/AdvReac Type Severity Reaction Status Date / Time No Known Allergies Allergy Verified 07/24/21 16:00 Review of Systems Review of Systems: All systems reviewed & are unremarkable except as noted in HPI and below Constitutional: Constitutional: Denies chills, Denies fever(s) and Denies weakness Gastrointestinal: Gastrointestinal: Reports abdominal pain, Denies diarrhea, Denies nausea and Denies vomiting Genitourinary: Genitourinary: Denies hematuria, Reports oliguria, Denies dysuria, Denies urinary frequency and Denies urinary incontinence [facility] Past Medical History Medical History Broken arm (~1950) History of aortic valve disorder Dr. French said could get Hip taken care of first. Moderate - mean gradient 25.3 mmHg, valve area 1.29 cm2 History of hypertension History of kidney stones Kidney stones in the past but not recent Hyperlipidemia Hypertension Family History Family History Father Malignant neoplasm of prostate Social History Social History Smoking status: Never smoker Tobacco type: cigarettes Smoking end date: 09/29/1961 Additional smoking assessment comments: SMOKED SMALL AMT TEENAGER Alcohol intake: current Drinks per week: 1 Alcohol use details: only on occasions Substance use: never Substance use type: does not use Additional living arrangements comments: Spiritual care concerns: No Exam Narrative: GENERAL: Well-appearing, well-nourished, and in no acute distress. HEAD: Normocephalic, atraumatic. CHEST: Clear to auscultation. No respiratory distress. HEART: Regular rate and rhythm. Normal peripheral pulses. ABDOMEN: Soft, suprapubic tenderness with distended bladder nondistended. EXTREMITIES: Normal range of motion. No edema. SKIN: Warm, dry, no rash. NEURO: Alert and oriented x3. PSYCH: Normal mood and affect. Course Course Emergency Course: Discussed with Dr. Young who is on-call for urology. Discontinue Bactrim and start patient on ciprofloxacin. Elmore catheter in place. Schedule follow-up appointment in clinic for removal. Vital Signs Vital signs: Vital Signs Temperature 98.9 F 08/04/21 14:59 Pulse Rate 98 08/04/21 14:59 Respiratory Rate 18 08/04/21 14:59 Blood Pressure 184/91 H 08/04/21 14:59 Pulse Oximetry 100 08/04/21 14:59 Temperature 98.9 F 08/04/21 14:59 Pulse Rate 98 08/04/21 14:59 Respiratory Rate 18 08/04/21 14:59 Blood Pressure 184/91 H 08/04/21 14:59 Pulse Oximetry 100 08/04/21 14:59 MDM - Male Genitourinary Lab Data Labs: Lab Results 08/04/21 Range/Units 16:45 Urine Color Yellow (Yellow) Urine Appearance Cloudy H (Clear) Urine pH 6.0 (5.0-9.0) Ur Specific [place] 1.016 (1.001-1.035) Urine Protein 1+ H (Negative) mg/dL Urine Glucose (UA) Negative (Negative) mg/dL Urine Ketones Negative (Negative) mg/dL Ur Blood (Man) 2+ H (Negative) Urine Nitrate Negative (Negative) Urine Bilirubin Negative (Negative)
[2021-08-04 18:25] VITALS: BP 121/78; PULSE 100; RESP 18; O2SAT 99
== END 2021-08-04 18:28 | disposition home or self-care (01) ==
PROVIDERS: Emergency Provider Emergency Medicine; PCP Nurse Practitioner Family
DX: N39.0 Urinary tract infection, site not specified (principal); R33.9 Retention of urine, unspecified; I10 Essential (primary) hypertension; Z87.442 Personal history of urinary calculi; E78.5 Hyperlipidemia, unspecified; I35.8 Other nonrheumatic aortic valve disorders; Z87.891 Personal history of nicotine dependence
CPT/HCPCS: 51702; 81001; 87077; 87086; 87088; 87186; 99283

== ENCOUNTER 2021-08-11 13:08 | Emergency (ER) | payer MEDICARE, SELFPAY ==
[2021-08-11 13:11] VITALS: BP 149/76; PULSE 97; RESP 18; TEMP 36.3; O2SAT 98
--- NOTE | 2021-08-11 13:32 | PC.NURSE ---
used normal saline to irrigate nieto.
--- NOTE | 2021-08-11 13:38 | ED.MALEGU ---
HPI - Male Genitourinary General Chief complaint: Urogenital-Male Stated complaint: hematuria Time Seen by Provider: 08/11/21 13:14 Source: patient Mode of arrival: ambulatory Limitations: no limitations History of Present Illness HPI Narrative: 76-year-old male Here for difficulty urinating and hematuria Patient recently had hip replacement surgery and developed urinary retention postoperatively Patient had a Elmore placed and removed and then subsequent to hospital discharge had to have it replaced and is slated to have it removed Friday, 2 days from now, by urology He is also been on an antibiotic after some initial confusion about which one of the multiple prescribed antibiotics he was supposed to be taking He was doing well until last night when he noticed some blood leaking around the Elmore catheter and some bloody urine and clots in a less full than usual Elmore bag overnight Here, he has had some clots irrigated out of his catheter He is not anticoagulated Related Data Home Medications Medication Instructions Recorded Confirmed losartan 100 mg tablet 100 mg PO HS 04/23/21 07/24/21 acetaminophen 1,000 mg PO Q6H PRN 07/13/21 07/24/21 Allergies Allergy/AdvReac Type Severity Reaction Status Date / Time No Known Allergies Allergy Verified 07/24/21 16:00 Review of Systems Review of Systems: All systems reviewed & are unremarkable except as noted in HPI and below Constitutional: Constitutional: Reports no additional constitutional complaints, Denies chills, Denies fever(s) and Denies headache(s) ENT: Denies headache(s) Cardiovascular: Cardiovascular: Denies chest pain and Denies dyspnea Respiratory: Respiratory: Denies dyspnea Gastrointestinal: Gastrointestinal: Denies abdominal pain, Denies bloating, Denies diarrhea and Denies vomiting Genitourinary: Genitourinary: Reports hematuria, Reports dysuria and Denies urinary frequency Musculoskeletal: Musculoskeletal: Denies deformity, Reports arthralgias, Denies joint swelling and Denies numbness Integumentary/Breasts: Skin/Breast: Denies rash and Denies wounds Neurologic: Denies headache(s), Denies focal weakness and Denies numbness Endocrine: Endocrine: Reports no additional endocrine complaints Hematologic/Lymphatic: Hematologic/Lymphatic: Denies easy bleeding and Denies easy bruising PMFSH Past Medical History Medical History Broken arm (~1950) History of aortic valve disorder Dr. French said could get Hip taken care of first. Moderate - mean gradient 25.3 mmHg, valve area 1.29 cm2 History of hypertension History of kidney stones Kidney stones in the past but not recent Hyperlipidemia Hypertension Family History Family History Father Malignant neoplasm of prostate Social History Social History Smoking status: Never smoker Tobacco type: cigarettes Smoking end date: 09/29/1961 Additional smoking assessment comments: SMOKED SMALL AMT TEENAGER Alcohol intake: current Drinks per week: 1 Alcohol use details: only on occasions Substance use: never Substance use type: does not use Additional living arrangements comments: Spiritual care concerns: No Exam Const: General: cooperative, no acute distress and alert Orientation/consciousness: patient oriented x3 (alert) HENMT: Head: normal to inspection, normocephalic and atraumatic Ears: external ears normal General nose exam: no epistaxis Eyes: Conjunctivae: conjunctivae normal EOM: EOMs intact bilaterally Neck: Neck: normal visual inspection, supple and no JVD Resp: Effort & Inspection: normal respiratory effort and not labored Auscultation: other (BS =) GI: Inspection: non-distended GI Palp: Yes Soft to palpation, No Tenderness to palpation present (GI), No Guarding due to palpation present (
[2021-08-11 15:09] VITALS: BP 147/73; PULSE 98; RESP 18; O2SAT 99
--- NOTE | 2021-08-11 15:09 | PC.NURSE ---
pt given nieto leg bag at time of discharge
== END 2021-08-11 15:10 | disposition home or self-care (01) ==
PROVIDERS: Emergency Provider Emergency Medicine; PCP Nurse Practitioner Family
DX: R31.9 Hematuria, unspecified (principal); T83.091A Other mechanical complication of indwelling urethral catheter, initial encounter; I10 Essential (primary) hypertension; E78.5 Hyperlipidemia, unspecified; Z87.442 Personal history of urinary calculi; Z98.890 Other specified postprocedural states; Z85.46 Personal history of malignant neoplasm of prostate; Z96.649 Presence of unspecified artificial hip joint
CPT/HCPCS: 99282

== ENCOUNTER 2021-12-26 19:14 | Emergency (ER) | payer MEDICARE, SELFPAY ==
[2021-12-26 19:16] VITALS: BP 173/85; PULSE 86; RESP 18; TEMP 36.9; O2SAT 99
--- NOTE | 2021-12-26 19:36 | ED.ANIMALBIT ---
HPI - Animal Bite General Chief Complaint: Animal Bite Stated Complaint: Bit by racoon Time Seen by Provider: 12/26/21 19:36 Source: patient Mode of arrival: ambulatory Limitations: no limitations History of Present Illness HPI narrative: Patient is a 76-year-old male with a history of hypertension, chronic kidney disease, presenting for evaluation of raccoon bite to right hand at the base of the right fifth digit. Patient states that he went outside to feed an outdoor cat dinner when he placed the food on the table and a raccoon ran up to the table and bit his right hand. Patient is right-hand dominant. He denies any significant pain. No significant bleeding. He is unsure if he is up-to-date on his tetanus. Patient denies any numbness. No other puncture wounds elsewhere. This occurred tonight at 5:30 PM. Related Data Home Medications Medication Instructions Recorded Confirmed losartan 100 mg tablet 100 mg PO HS 04/23/21 11/08/21 Allergies Allergy/AdvReac Type Severity Reaction Status Date / Time Sulfa (Sulfonamide AdvReac Diarrhea Verified 12/26/21 19:56 Antibiotics) Review of Systems Review of Systems: CONSTITUTIONAL: Denies fever CARDIOVASCULAR: Denies chest pain RESPIRATORY: Denies cough or dyspnea. GASTROINTESTINAL: Denies abdominal pain SKIN: Denies rash, reports puncture wound to base of right thumb MUSCULOSKELETAL: Denies back pain NEUROLOGIC: Denies headache PMF Past Medical History Medical History Broken arm (~1950) History of aortic valve disorder Dr. French said could get Hip taken care of first. Moderate - mean gradient 25.3 mmHg, valve area 1.29 cm2 History of hypertension History of kidney stones Kidney stones in the past but not recent Hyperlipidemia Hypertension Family History Family History Father Malignant neoplasm of prostate Social History Social History Smoking status: Never smoker Tobacco type: cigarettes Smoking end date: 09/29/1961 Additional smoking assessment comments: SMOKED SMALL AMT TEENAGER Alcohol intake: current Drinks per week: 1 Alcohol use details: only on occasions Substance use: never Substance use type: does not use Additional living arrangements comments: Spiritual care concerns: No Exam Narrative: GENERAL: Awake, alert, conversant HEAD: Normocephalic, atraumatic. EYES: 2+ PERRLA and EOMI. ENT: Nares clear, no rhinorrhea or epistaxis. Mucous membranes moist. NECK: Supple. CHEST: No respiratory distress, breathing even and non labored HEART: Regular rate, sinus rhythm ABDOMEN:Non distended, non tender EXTREMITIES: Normal range of motion. No edema. 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 Hypotonia. Right upper extremity is normal-appearing with normal strength. Intact sensation median, ulnar, radial nerve distribution. Radial pulse 2+. Capillary refill less than 3 seconds. Patient with puncture wound to base of right fifth digit on the hypothenar eminence. Scattered abrasions to the base of right fifth digit. No avulsion. No deep tissue involvement. Non gaping. SKIN: Warm, dry, no rash. NEURO:No focal deficits. Alert and oriented x3. Patient ambulatory with a narrow base, steady gait. Course Vital Signs Vital signs: Vital Signs Temperature 36.9 C 12/26/21 19:16 Pulse Rate 86 12/26/21 19:16 Respiratory Rate 18 12/26/21 19:16 Blood Pressure 173/85 H 12/26/21 19:16 Pulse Oximetry 99 12/26/21 19:16 Temperature 36.9 C 12/26/21 19:16 Pulse Rate 80 12/26/21 19:57 Respiratory Rate 18 12/26/21 19:57 Blood Pressure 163/80 H 12/26/21 19:57 Pulse Oximetry 97 12/26/21 19:57 Procedures Other Procedure Procedure 1: Other Procedure: Rabies immunoglobulin prophylaxis The puncture w
[2021-12-26 19:57] VITALS: BP 163/80; PULSE 80; RESP 18; O2SAT 97
[2021-12-26] MEDS: CHLORHEXIDINE GLUCONATE 4% SOL 120 ML BTL 1 APPLIC TOPICAL (20:20)
--- NOTE | 2021-12-26 20:20 | PC.NURSE ---
Pt hand placed in cleanser per ERP Bertels request at this time.
[2021-12-26] MEDS: TETANUS,DIPHTHERIA,AC PERTUSSIS ADULT (0.5 ML) BOOSTRIX IM (20:52)
[2021-12-26] MEDS: AMOXICILLIN/CLAVULANATE K 875-125 MG TAB 1 TABLET PO (20:59)
[2021-12-26] MEDS: RABIES VACCINE (RABAVERT) 2.5 UNITS VIAL IM (21:03)
[2021-12-26 21:31] VITALS: BP 147/87; PULSE 75; RESP 18; O2SAT 96
== END 2021-12-26 21:31 | disposition home or self-care (01) ==
PROVIDERS: Emergency Provider Emergency Medicine; PCP Nurse Practitioner Family
DX: S61.451A Open bite of right hand, initial encounter (principal); W55.51XA Bitten by raccoon, initial encounter; I10 Essential (primary) hypertension; E78.5 Hyperlipidemia, unspecified; Z23 Encounter for immunization
CPT/HCPCS: 90471; 90472; 90675; 90715; 99283; A9270

== ENCOUNTER 2021-12-29 08:18 | Emergency (ER) | payer MEDICARE, SELFPAY ==
[2021-12-29 08:24] VITALS: BP 156/81; PULSE 89; RESP 18; TEMP 36.8; O2SAT 100
--- NOTE | 2021-12-29 08:42 | ED.GENADULT ---
HPI - General Adult General Chief complaint: Unspecified Stated complaint: rabies shot Time Seen by Provider: 12/29/21 08:23 Source: patient History of Present Illness HPI narrative: 76-year-old male presents emergency room needing a rabies shot. He was at home on Friday when he stepped off his back porch to feed a cat that stays in the neighborhood. As he reached over to put the cat food out he did not see but there was a raccoon on the back porch and the raccoon jumped up and bit him on the right hand. He is already been seen and evaluated by this and is here for his next shot of rabies for the series. He has no other problems or complaints at this time. Related Data Home Medications Medication Instructions Recorded Confirmed losartan 100 mg tablet 100 mg PO HS 04/23/21 11/08/21 Allergies Allergy/AdvReac Type Severity Reaction Status Date / Time Sulfa (Sulfonamide AdvReac Diarrhea Verified 12/26/21 19:56 Antibiotics) Review of Systems Review of Systems: CONSTITUTIONAL: Denies fever, chills, or sweats. EYES: Denies visual changes, redness, or discharge. ENT: Denies rhinorrhea, congestion, sore throat, or otalgia. CARDIOVASCULAR: Denies chest pain, palpitations, or edema. RESPIRATORY: Denies cough or dyspnea. GASTROINTESTINAL: Denies abdominal pain, nausea, vomiting, or diarrhea. GENITOURINARY: Denies dysuria or hematuria. SKIN: Denies rash or itching. MUSCULOSKELETAL: Denies back pain, joint pain, or myalgia. NEUROLOGIC: Denies headache, numbness, or weakness. PSYCHIATRIC: Denies anxiety or depression. [facility] Past Medical History Medical History Broken arm (~1950) History of aortic valve disorder Dr. French said could get Hip taken care of first. 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 Head normocephalic atraumtaic. EYES: PERRLA/EOMI, conjunctivae very clear. NOSE: Normal no drainage EARS:TMS clear Heather Nguyen, with good light reflex. THROAT: Pharynx clear, no exudate. NECK: Supple. No adenopathy, no masses. RESPIRATORY: Airway patent, repsirations nonlabored. Clear to auscultation bilaterally, no rales, rhonchi, wheezing. CARDIOVASCULAR: Regular rate and rhythm without murmurs rubs or gallops. ABDOMINAL: Soft, nontender, nondistended, no hepatosplenomegally MUSCULOSKELETAl: Bandage noted to the right hand from where he had the bite. There is no swelling to the area. No discharge. NEURO: Alert. Cranial nerves II through XII intact. Good gait. Good coordination SKIN:: Warm, dry. Normal Color PSYCHIATRIC: Normal affect/mood, normal interaction with parents. Course Course Emergency Course: Patient was given his next rabies vaccination in the series and he has 2 more to go. Vital Signs Vital signs: Vital Signs Temperature 98.2 F 12/29/21 08:24 Pulse Rate 89 12/29/21 08:24 Respiratory Rate 18 12/29/21 08:24 Blood Pressure 156/81 H 12/29/21 08:24 Pulse Oximetry 100 12/29/21 08:24 Temperature 98.2 F 12/29/21 08:24 Pulse Rate 89 12/29/21 08:24 Respiratory Rate 18 12/29/21 08:24 Blood Pressure 156/81 H 12/29/21 08
[2021-12-29] MEDS: RABIES VACCINE (RABAVERT) 2.5 UNITS VIAL IM (09:02)
[2021-12-29 09:16] VITALS: RESP 16
== END 2021-12-29 09:17 | disposition home or self-care (01) ==
LOC: ANHED 08:52
PROVIDERS: Emergency Provider Emergency Medicine; PCP Nurse Practitioner Family
DX: S61.451A Open bite of right hand, initial encounter (principal); Z29.14 Encounter for prophylactic rabies immune globulin; I10 Essential (primary) hypertension; Z87.442 Personal history of urinary calculi; E78.5 Hyperlipidemia, unspecified; Z87.891 Personal history of nicotine dependence; W55.51XA Bitten by raccoon, initial encounter
CPT/HCPCS: 90471; 90675; 99282

== ENCOUNTER 2022-01-09 09:11 | Outpatient (RCR) | payer MEDICARE, SELFPAY ==
--- NOTE | 2022-01-02 10:19 | PC.NURSE ---
AMBULATORY TO OUTPATIENT LAB DRAW AREA FOR 3RD RABIES VACCINE. HISTORY OF RACCOON BITE ON 12/26/2021 ON LEFT HAND. RABIES VACCINE WAS INITIATED ON 12/26/21 IN ED AND RECEIVED 2ND DOSE ON 12/29/2021 IN ED. THIRD DOSE IS NOW DUE. STATES IS FEELING OK AND DOES NOT FEEL HE HAS HAD A REACTION TO THE 2 PREVIOUS DOSES. DENIES NAUSEA, VOMITING, RASH, BODY ACHES. WOUND ON HAND IS HEALING WITHOUT SIGNS OF INFECTION - REDNESS, TENDERNESS, DRAINAGE, EDEMA OR WARMTH - AT SITE. TO RETURN IN 1 WEEK FOR 4TH AND LAST INJECTION - VOICES UNDERSTANDING.
--- NOTE | 2022-01-09 09:19 | PC.NURSE ---
AMBULATORY TO LAB DRAW STATION FOR 4TH INJECTION OF RABIES VACCINE SERIES. STATES ARM WAS SORE AFTER LAST INJECTION BUT DENIES BODY ACHES, NAUSEA, RASH OR OTHER SIGNS OF REACTION. SITE OF RACCOON BITE IS HEALED WITHOUT REDNESS, TENDERNESS, EDEMA, OR DRAINAGE. GIVEN INJECTION DOCUMENTED. DISCHARGED AMBULATORY WITH STEADY GAIT.
== END 2022-04-09 23:59 | disposition home or self-care (01) ==
LOC: ANHVASCINF 09:11
PROVIDERS: PCP Nurse Practitioner Family; Visit Provider Emergency Medicine
DX: Z20.3 Contact with and (suspected) exposure to rabies (principal)
CPT/HCPCS: 90471; 90675

== ENCOUNTER 2024-07-15 10:46 | Outpatient (CLI) | payer MEDICARE, SELFPAY ==
--- NOTE | ~2024-07-15 | XR_ITS ---
AP and lateral views of the right hip Clinical history: Pain Findings: No acute fracture or dislocation is seen. Right hip arthroplasty in place, without evidence of hardware complication.. Soft tissues are unremarkable. Impression: No acute abnormality. Right hip arthroplasty. Reviewed, dictated and finalized at location . Impression: No acute abnormality. Right hip arthroplasty.
== END 2024-07-15 10:47 | disposition home or self-care (01) ==
LOC: MICIMG 10:49
PROVIDERS: PCP Orthopaedic Surgery; Visit Provider Orthopaedic Surgery
DX: Z96.641 Presence of right artificial hip joint (principal)
CPT/HCPCS: 73502